=== PATIENT | male | born 1995 | race Caucasian/White ===

== ENCOUNTER 2018-01-20 23:45 | Emergency (ER) | payer SELFPAY ==
[2018-01-21 01:24] VITALS: BP 132/87
[2018-01-21] MEDS ORDERED: BOOSTRIX IM ONE (02:04)
[2018-01-21] MEDS ORDERED: MOTRIN PO ONE (02:04)
--- NOTE | 2018-01-21 02:06 | Emergency Department Report ---
ED Laceration HPI - HPI Chief Complaint: Wound/Laceration Stated Complaint: LEFT HAND FINGER LACERATION Time Seen by Provider: 01/21/18 01:43 Occurred When: Today Location: Upper Extremity Severity: mild Tetanus Status: Not up to Date Laceration Symptoms: Yes Pain, No Foreign Body Sensation, No Numbness, No Weakness Other History: Diseases 22-year-old male presents to ED with laceration to his left index finger. Patient states she was at work today when he accidentally cut himself with a metal piece. Patient states tetanus is unknown. Patient states minimal bleeding after incident. ED Review of Systems ROS: Stated complaint: LEFT HAND FINGER LACERATION Other details as noted in HPI Constitutional: denies: chills, fever Eyes: denies: eye pain, eye discharge, vision change ENT: denies: ear pain, throat pain Respiratory: denies: cough, shortness of breath, wheezing Cardiovascular: denies: chest pain, palpitations Endocrine: no symptoms reported Gastrointestinal: denies: abdominal pain, nausea, diarrhea Genitourinary: denies: urgency, dysuria Musculoskeletal: denies: back pain, joint swelling, arthralgia Skin: denies: rash, lesions Neurological: denies: headache, weakness, paresthesias Psychiatric: denies: anxiety, depression Hematological/Lymphatic: denies: easy bleeding, easy bruising ED Past Medical Hx - Past Medical History Previous Medical History?: No - Surgical History Past Surgical History?: No - Social History Smoking Status: Never Smoker Substance Use Type: None - Medications Home Medications: Home Medications Medication Instructions Recorded Confirmed Last Taken Type Cephalexin [Keflex] 500 mg PO Q12HR #10 cap 01/21/18 Unknown Rx Ibuprofen [Motrin] 800 mg PO Q8HR PRN #30 tablet 01/21/18 Unknown Rx Laceration Physical Exam - Exam General: Vital signs noted. No distress. Alert and acting appropriately. Wound Length (cm): 3 Laceration Location: Upper Extremity Laceration Exam: No Foreign Body, No Exposed Tendon, Vessel, or Nerve, No Tendon Injury, No Normal Distal CMS ED Course Vital Signs 01/21/18 01:20 Temperature 97.4 F L Pulse Rate 61 Blood Pressure 132/87 O2 Sat by Pulse 100 Oximetry - Laceration /Wound Repair Left Anterior Finger Wound Location: upper extremity Wound Length (cm): 3 Wound's Depth, Shape: superficial, linear Wound Explored: clean Irrigated w/ Saline (ccs): 400 Betadine Prep?: Yes Anesthesia: 1% Lidocaine Volume Anesthetic (ccs): 4 Wound Repaired With: sutures Suture Size/Type: 4:0, proline Number of Sutures: 9 Layer Closure?: No Sterile Dressing Applied?: Yes ED Medical Decision Making - Radiology Data Radiology results: report reviewed, image reviewed FINAL REPORT EXAM: XR FINGER(S) 2+V LT HISTORY: laceration COMPARISON: None available. FINDINGS: Three views of the left 2nd finger obtained. Soft tissue injury along the 2nd PIP joint. No radiopaque foreign body. Bony structures are intact. Joint spaces are preserved. No acute fracture dislocation. IMPRESSION: No acute bony abnormality. Soft tissue injury along the 2nd digit. No radiopaque foreign body. Transcribed By: LMA Dictated By: NIMA DURON MD Electronically Authenticated By: NIMA DURON MD Signed Date/Time: 01/21/18 0205 - Medical Decision Making 22-year-old male presents with finger laceration ED course: Patient received tetanus booster Motrin for pain X-ray shows no acute findings The 3cm laceration wound was prepped and draped in sterile fashion. Anesthesia was achieved with 4mL of 1% lidocaine. The wound was irrigated with 200cc NS and explored. There were no foreign bodies The wound was reapproximated in 1 layer with 9 sutures suing with 4 -0 monofilament sutures in the dermis with interrupted sutures percutaneously. There was excellent reapproximation of the wound edges. The patient tolerated the procedure without complication. Discussed with the patient to return in 7-10 days for suture removal Critical care attestation.: If time is entered above; I have spent that time in minutes in the direct care of this critically ill patient, excluding procedure time. ED Disposition Clinical Impression: Laceration of finger Qualifiers: Encounter type: initial encounter Disposition: TO HOME OR SELFCARE Is pt being admited?: No Does the pt Need Aspirin: No Condition: Stable Instructions: Suture Care (ED), Laceration (ED), Finger Laceration (ED), Absorbable Suture Care (ED) Additional Instructions: Make sure to follow up with the primary care physician as discussed. Take all your medications as you've been prescribed. Return to ED or primary care physician in 7-10 days If you have any worsening symptoms or develop new symptoms please return to ED immediately. Prescriptions: Cephalexin [Keflex] 500 mg PO Q12HR #10 cap Ibuprofen [Motrin] 800 mg PO Q8HR PRN #30 tablet PRN Reason: Pain Referrals: PRIMARY CARE,MD [Primary Care Provider] - 3-5 Days [facility] [Outside] - 3-5 Days [facility] [Outside] - 3-5 Days [facility] [Outside] - 3-5 Days Forms: Accompanied Note, Work/School Release Form(ED) Print Language: KYRGYZ
--- NOTE | 2018-01-21 02:10 | XRay Report ---
FINAL REPORT EXAM: XR FINGER(S) 2+V LT HISTORY: laceration COMPARISON: None available. FINDINGS: Three views of the left 2nd finger obtained. Soft tissue injury along the 2nd PIP joint. No radiopaque foreign body. Bony structures are intact. Joint spaces are preserved. No acute fracture dislocation. IMPRESSION: No acute bony abnormality. Soft tissue injury along the 2nd digit. No radiopaque foreign body.
== END 2018-01-21 03:45 | disposition home or self-care (01) ==
LOC: ED 23:45
DX: S61.211A Laceration without foreign body of left index finger without damage to nail, initial encounter (principal); W26.8XXA Contact with other sharp object(s), not elsewhere classified, initial encounter; Y93.89 Activity, other specified; Y92.89 Other specified places as the place of occurrence of the external cause; Y99.8 Other external cause status
CPT/HCPCS: 90471; 90715; 99283